=== PATIENT | female | born 1985 | race African-American/Black ===

== ENCOUNTER 2019-04-30 20:39 | Emergency (ER) | payer OTHER ==
--- NOTE | 2019-04-30 21:11 | PDOC ---
Rapid Medical Evaluation Chief Complaint: Cold Symptoms Time Seen by Provider: 04/30/19 21:05 Medical Evaluation: 04/30/19 21:06 I have performed a brief in-person evaluation of this patient. The patient presents with a chief complaint of: fevers 102+ x 3 days , seen and sent from , influenza and preg test at NEGATIVE = + nausea/ body aches , denies cough/ ear or throat pain Pertinent physical exam findings: pale/ tired, I have ordered the following: throat cx The patient will proceed to the ED for further evaluation. 04/30/19 21:09 Discharge Disposition - Diagnosis Fever - Referrals - Patient Instructions - Post Discharge Activity
[2019-04-30 21:19] VITALS: BP 108/63; PULSE 90; TEMP 100; BMI 35.1
[2019-04-30] MEDS ORDERED: ACETAMINOPHEN 500 MG TABLET (FP) PO ONE (21:50)
--- NOTE | 2019-04-30 21:59 | PDOC ---
History of Present Illness - General Chief Complaint: Cold Symptoms Stated Complaint: FEVER Time Seen by Provider: 04/30/19 21:05 - History of Present Illness Initial Comments: 04/30/19 21:57 33-year-old female without comorbidities presents for evaluation of fever chills and night sweats and body aches 5 days Past History - Past Medical History Allergies/Adverse Reactions: Allergies Allergy/AdvReac Type Severity Reaction Status Date / Time No Known Allergies Allergy Verified 04/30/19 21:09 COPD: No - Suicide/Smoking/Psychosocial Hx Smoking History: Never smoked Have you smoked in the past 12 months: No Information on smoking cessation initiated: No Hx Alcohol Use: No Drug/Substance Use Hx: No Review of Systems - Review of Systems Constitutional: Yes: Chills, Fever, Malaise, Night Sweats, Weakness *Physical Exam - Vital Signs Last Vital Signs Temp Pulse Resp BP Pulse Ox 100.0 F H 90 18 108/63 100 04/30/19 21:07 04/30/19 21:07 04/30/19 21:07 04/30/19 21:07 04/30/19 21:07 - Physical Exam Comments: 04/30/19 21:57 HEAD: NC/AT EYES: Conjuntiva clear Ears: Canals and TM's normal NOSE: No d/c THROAT: Moist mucous membrances, oral pharanx clear, uvula midline NECK: Supple without adenopathy CARDIAC: S1 S2 LUNGS: CTA Full and Equal breath sounds ABDOMEN: Soft NT ND MS: Full ROM in all joints without edema NEUROLOGIC: No gross sensory or motor deficits, NVID SKIN: Normal color and temperature no lesions or rashes Medical Decision Making - Medical Decision Making 04/30/19 21:57 Examination on impresses however symptoms have been lingering for the last 5 days as suspected tickborne illness have ordered a tickborne panel CBC and chemistry I will have her follow-up with her primary care physician. We have drawn preliminary blood here. *DC/Admit/Observation/Transfer Diagnosis at time of Disposition: Fever - Discharge Dispostion Disposition: HOME Condition at time of disposition: Stable Decision to Admit order: No - Referrals Referrals: Oh Pace MD [Staff Physician] - - Patient Instructions Additional Instructions: Tylenol and Motrin as directed for fever. Return to the emergency room for worsening symptoms. Follow-up with her primary care physician in one to 2 days for further evaluation and treatment options. We have drawn blood for lyme, Babesia, and Ehrlichia panel to evaluate for tickborne illnesses. - Post Discharge Activity
[2019-04-30 22:06] LABS: HCG,QUALITATIVE URINE Negative
[2019-04-30 22:07] LABS: HYALINE CASTS 1 /lpf (0-8); URINE APPEARANCE CLOUDY; URINE BACTERIA 1105.2 /hpf (NEGATIVE); URINE BILIRUBIN NEGATIVE (NEGATIVE); URINE COLOR YELLOW; URINE GLUCOSE (UA) NEGATIVE (NEGATIVE); URINE KETONE 2+ (NEGATIVE); URINE LEUK ESTERASE 3+ (NEGATIVE); URINE NITRITE NEGATIVE (NEGATIVE); URINE PROTEIN 2+ (NEGATIVE); URINE RBC 9 /hpf (0-4); URINE WBC 335 /hpf (0-5)
[2019-04-30] MEDS ORDERED: ACETAMINOPHEN 500 MG TABLET (FP) ONE (22:13)
[2019-04-30 22:39] LABS: BASO % 0.3 % (0-2.0); HEMATOCRIT 34.9 % (32.4-45.2); HEMOGLOBIN 11.5 GM/dL (10.7-15.3); LYMPH % 5.9 % (8-40); MCH 26.3 pg (25.7-33.7); MCHC 32.9 g/dl (32.0-36.0); MEAN PLT VOLUME 10.1 fl (7.5-11.1); MONO % 14.7 % (3.8-10.2); NEUT % 79.1 % (42.8-82.8); PLATELET COUNT 251 K/MM3 (134-434); RBC 4.36 M/mm3 (3.60-5.2); RDW 13.7 % (11.6-15.6); WHITE BLOOD COUNT 13.8 K/mm3 (4.0-10.0)
[2019-04-30 22:53] LABS: ALBUMIN 3.4 g/dl (3.4-5.0); BILIRUBIN,TOTAL 0.6 mg/dL (0.2-1); BLOOD UREA NITROGEN 8.3 mg/dL (7-18); CALCIUM 8.5 mg/dL (8.5-10.1); CREATININE 1.2 mg/dL (0.55-1.3); POTASSIUM 3.1 mmol/L (3.5-5.1); TOT PROT 7.4 g/dl (6.4-8.2)
== END 2019-04-30 22:15 | disposition home or self-care (01) ==
LOC: JERFT 20:39 → JER 20:39 → JERFT 22:15
DX: R50.9 Fever, unspecified (principal)
CPT/HCPCS: 36415; 80053; 81003; 84703; 85025; 86618; 86666; 86753; 87070; 87086; 87186; 87880; 99281-25

== ENCOUNTER 2019-05-01 07:36 | Inpatient (IN) | payer OTHER ==
--- NOTE | 2019-05-01 08:03 | PDOC ---
History of Present Illness - General Chief Complaint: Diarrhea Stated Complaint: CHEST PAIN/FEVER Time Seen by Provider: 05/01/19 08:03 History Source: Patient Exam Limitations: No Limitations - History of Present Illness Initial Comments: 05/01/19 08:23 33 year old female with no PMH presented to ED for chest pain since 0700 today. Pt reported her pain is intermittent, pressure-like, non-radiating, no alleviating or aggravating factors. Pt also complained of diarrhea, body aches, fever x4 days. Pt denied vomiting, blood in stool, recent travel outside the [place] , cough. Pt stated her fever was 101F today, and she last took Tylenol and Motrin at around 0400. Allergies: NKDA Family cardiac history: denied [place] in mother/father/siblings. Nicotine history: never smoked Past History - Past Medical History Allergies/Adverse Reactions: Allergies Allergy/AdvReac Type Severity Reaction Status Date / Time No Known Allergies Allergy Verified 05/01/19 07:46 COPD: No - Suicide/Smoking/Psychosocial Hx Smoking History: Never smoked Have you smoked in the past 12 months: No Information on smoking cessation initiated: No Hx Alcohol Use: No Drug/Substance Use Hx: No Review of Systems - Review of Systems Able to Perform ROS?: Yes Comments:: 05/01/19 08:22 General: admitted to fever, chills, generalized weakness, body aches. HEENT: denied sore throat, rhinorrhea, ear pain. Heart: admitted to chest pain. denied palpitations, syncope, diaphoresis. Respiratory: denied shortness of breath, cough, sputum production, hemoptysis. Abdomen: admitted to diarrhea. denied abdominal pain, nausea, vomiting, constipation, blood in stool. : denied dysuria, increased urinary frequency, hematuria, urinary incontinence , flank pain. Back: denied back pain. Musculoskeletal: denied joint pain, muscle pain, joint swelling. Neurological: denied headache, dizziness, numbness, tingling, weakness. Skin: denied rash, laceration, abrasion. *Physical Exam - Vital Signs Last Vital Signs Temp Pulse Resp BP Pulse Ox 99.3 F 18 L 110 H 126/67 100 05/01/19 07:43 05/01/19 07:43 05/01/19 07:43 05/01/19 07:43 05/01/19 07:43 - Physical Exam Comments: 05/01/19 08:23 Constitutional: Well-nourished, Well-developed, appearing stated age. HEENT: head is normocephalic, atraumatic. EOMI. PERRLA. Neck: supple. Full ROM. Heart: regular rhythm. no murmurs, rubs or gallops. Lungs: clear to auscultation bilaterally. no crackles, rhonchi or wheezing. no stridor. Abdomen: soft, flat. mild tenderness to palpation of epigastrium. decreased bowel sounds. urrutia negative. no rebound, guarding, masses. Back: negative CVA tenderness bilaterally. Extremities: peripheral pulses intact. no lower extremity edema. Neurological: CN 2-12 grossly intact. moves all four extremities. Psych: awake, alert, oriented x3. follows commands. answers questions appropriately. Heart Score/ECG Review - History History: Slightly suspicious - Electrocardiogram EKG: Non specific repolarization disturbance - Age Age: </= 45 - Risk Factors Based on the list above the patient has:: No risk factors known - Troponin Troponin: </= normal limit - Score Heart Score - Total: 1 ED Treatment Course - LABORATORY CBC & Chemistry Diagram: 05/01/19 13:55 05/01/19 13:55 Medical Decision Making - Medical Decision Making 33 year old female with no PMH presented to ED for chest pain since 0700 today. Pt was seen and evaluated in [facility] ED 04/30/19 for fever/diarrhea, no chest pain at the time. Examination significant for epigastric tenderness. Initial Vital Signs Temp Pulse Resp BP Pulse Ox 99.3 F 110 H 18 126/67 100 05/01/19 07:43 05/01/19 07:43 05/01/19 07:43 05/01/19 07:43 05/01/19 07:43 Afebrile. Tachycardia. No tachypnea. No hypotension. No hypoxia on room air. Labs ordered: CBC, CMP, TSH, troponin, Mag, stool culture Imaging ordered: CT abdomen and pelvis with IV contrast Medications ordered: pepcid, maalox, normal saline bolus 1000 cc, ASA 162 mg PO chew Urine testing from 04/30/19 was negative. Labs 04/30/19 were significant for leukocytosis (13.1) with mild hyponatremia ( 134) and hypokalemia (3.1); UA was positive for UTI, pt denied dysuria/ increased urinary frequency, no treatment given. EKG performed at 0823: rate 81, regular rhythm, normal axis, normal intervals, flipped T lateral/inferior. No prior to compare. Vital Signs Pulse Rate 100 H 05/01/19 08:38 Respiratory Rate 17 05/01/19 08:38 O2 Sat by Pulse Oximetry (%) 100 05/01/19 08:38 Tachycardia improving. 05/01/19 09:05 CXR report: Chest: Pain. A single AP view of the chest reveals clear lungs, normal mediastinum and sharp angles. The bones and soft tissues are intact. Impression: No acute chest pathology. Reported By: Dat Hurley MD 05/01/19 0858 05/01/19 09:08 CBC WBC 15.0 K/mm3 (4.0-10.0) H 05/01/19 08:18 RBC 4.24 M/mm3 (3.60-5.2) 05/01/19 08:18 Hgb 11.2 GM/dL (10.7-15.3) 05/01/19 08:18 Hct 33.7 % (32.4-45.2) 05/01/19 08:18 MCV 79.3 fl (80-96) L 05/01/19 08:18 MCH 26.4 pg (25.7-33.7) 05/01/19 08:18 MCHC 33.3 g/dl (32.0-36.0) 05/01/19 08:18 RDW 14.0 % (11.6-15.6) 05/01/19 08:18 Plt Count 245 K/MM3 (134-434) 05/01/19 08:18 MPV 10.3 fl (7.5-11.1) 05/01/19 08:18 Absolute Neuts (auto) 12.1 K/mm3 (1.5-8.0) H 05/01/19 08:18 Neutrophils % 80.4 % (42.8-82.8) 05/01/19 08:18 Lymphocytes % 4.8 % (8-40) L 05/01/19 08:18 Monocytes % 14.7 % (3.8-10.2) H 05/01/19 08:18 Eosinophils % 0.0 % (0-4.5) 05/01/19 08:18 Basophils % 0.1 % (0-2.0) 05/01/19 08:18 Nucleated RBC % 0 % (0-0) 05/01/19 08:18 Leukocytosis with left shift. No anemia. 05/01/19 09:33 CMP Sodium 136 mmol/L (136-145) 05/01/19 08:18 Potassium 3.5 mmol/L (3.5-5.1) 05/01/19 08:18 Chloride 101 mmol/L (98-107) 05/01/19 08:18 Carbon Dioxide 27 mmol/L (21-32) 05/01/19 08:18 Anion Gap 8 MMOL/L (8-16) 05/01/19 08:18 BUN 7.8 mg/dL (7-18) 05/01/19 08:18 Creatinine 1.2 mg/dL (0.55-1.3) 05/01/19 08:18 Est GFR (CKD-EPI)AfAm 68.28 05/01/19 08:18 Est GFR (CKD-EPI)NonAf 58.92 05/01/19 08:18 Random Glucose 114 mg/dL (74-106) H 05/01/19 08:18 Calcium 8.5 mg/dL (8.5-10.1) 05/01/19 08:18 Magnesium 2.2 mg/dL (1.8-2.4) 05/01/19 08:18 Total Bilirubin 0.6 mg/dL (0.2-1) 05/01/19 08:18 AST 10 U/L (15-37) L 05/01/19 08:18 ALT 15 U/L (13-61) 05/01/19 08:18 Alkaline Phosphatase 106 U/L (45-117) 05/01/19 08:18 Troponin I < 0.02 ng/ml (0.00-0.05) 05/01/19 08:18 Total Protein 7.1 g/dl (6.4-8.2) 05/01/19 08:18 Albumin 3.1 g/dl (3.4-5.0) L 05/01/19 08:18 TSH 1.45 uIU/ml (0.358-3.74) 06/20/19 08:18 No electrolyte abnormalities. No Tona. No transaminitis. TSH normal. Troponin undetectable. Lipase 05/01/19 11:00 CT abdomen/pelvis report: Clinical history: 33-year-old female with febrile diarrhea. Rule out diverticulitis or colitis. Comparison: None. Contiguous transaxial images were obtained from the diaphragmatic domes and pubic symphysis after the administration of IV contrast. Sagittal and coronal reconstructions were performed. Lung bases: Minimal atelectasis. Bone: Negative. Liver: There is a degree of a fatty liver. Gallbladder: Negative. Biliary tree: Negative. Spleen: Negative. Pancreas: Negative. Adrenals: Negative. Kidneys: Diffusely inhomogeneous enhancement consistent with bilateral pyelonephritis. This is bilateral but worse on the left. The left kidney is swollen and there is mild bilateral perirenal stranding.. No hydronephrosis or stones seen. Pelvis: T-shaped IUD is seen in place. Possible complex left ovarian cyst. Mild fluid in the cul-de -sac. Normal bladder appearance. Bowel: Negative. Normal appendix. Other: Small hiatal hernia. It is laxity and anterior bowing of the midline rectus fascia associated with an umbilical hernia with fat. Impression: Findings are consistent with extensive bilateral pyelonephritis, greater on the left. No evidence of obstruction or stone disease is seen. Fatty liver. T-shaped IUD. Possible complex left ovarian cyst. Mild fluid in the cul-de-sac. Other findings as above. Clinical correlation advised. Reported By: Dat Billy MD 05/01/19 1056 Medications ordered: Ceftriaxone 1g IV, Tylenol IV Labs ordered: blood culturesx2 Disposition: Admission for febrile bilateral pyelonephritis *DC/Admit/Observation/Transfer Diagnosis at time of Disposition: Pyelonephritis - Discharge Dispostion Condition at time of disposition: Stable Decision to Admit order: Yes - Referrals - Patient Instructions - Post Discharge Activity
[2019-05-01] MEDS ORDERED: FAMOTIDINE 20 MG/50 ML IVPB 20 MG/50 ML MG IVPB ONE ×2 (08:22→08:28)
[2019-05-01] MEDS ORDERED: SODIUM CHLORIDE 1,000 ML IV STA (08:22)
[2019-05-01] MEDS ORDERED: MAG HYDROX/AL HYDROX/SIMETH 30 ML UNIT-DOSE CUP PO ONE (08:22)
[2019-05-01] MEDS ORDERED: MAG HYDROX/AL HYDROX/SIMETH 30 ML UNIT-DOSE CUP ONE (08:28)
--- NOTE | 2019-05-01 08:39 | PDOC ---
Attending Attestation - Resident Resident Name: Anna Senior - ED Attending Attestation I have performed the following: I have examined & evaluated the patient, The case was reviewed & discussed with the resident, I agree w/resident's findings & plan, Exceptions are as noted - HPI HPI: 05/01/19 09:17 Ms Enrique is a 33 yo F no PMH presentin to the ER for chest pain since 0700 today. Pt has had fevers since 5 days (since Sunday) Tmax 103 Pt has also had diarrhea, 4-5 non bloody liquid stools per day No vomiting Decreased appetite She reports myalgias. No international travel No change in diet, no food from abroad No camping No arthropod bites No headaches No dysuria No abdominal pain No ill contacts - has been visiting her aunt in the long-term daily, went to a picnic in [place] Pt presents today because she got up and noted a temp of 101 and chest pressure , center of the chest, no radiation, 8/10 Pt is febrile despite Tylenol and Motrin Allergies: NKDA Family cardiac history: denied [place] in mother/father/siblings. Nicotine history: never smoked - Physicial Exam PE: 05/01/19 08:39 GENERAL: The patient is in no acute distress. ENT: Ears normal, nares patent, oropharynx clear without exudates. Moist mucous membranes. NECK: Normal range of motion, supple LUNGS: Breath sounds equal, clear to auscultation bilaterally. No wheezes, and no crackles. HEART:Regular rate and rhythm, normal S1 and S2 without murmur, rub or gallop. ABDOMEN: Soft, nontender, normoactive bowel sounds. EXTREMITIES: Normal range of motion, no edema. NEUROLOGICAL: Cranial nerves II through XII grossly intact. Normal speech. No focal neurological deficits. SKIN: Warm, Dry, normal turgor, no rashes or lesions noted. - Medical Decision Making 05/01/19 08:39 EKG - NSR rate of 81 bpm, axis nml, intervals nml, no st elevation or depression , t wave inversions v3-v6, III, aVF 05/01/19 09:26 Febrile illness Pt had UA yesterday which was ? positive Will do: Labs UA CT abd IVF Re Assess Consider thin and thick smears Culture sent 05/02/19 09:05 Laboratory Tests 05/01/19 05/01/19 08:18 08:18 WBC 15.0 H Hgb 11.2 Hct 33.7 Plt Count 245 BUN 7.8 Creatinine 1.2 05/02/19 09:05 CT demonstrates bilateral pyelonephritis Will treat with Ceftriaxone Urinalysis and Urine cultures sent yesterday Admit for pyelo as pt is unable to tolerate po at this time
[2019-05-01 08:43] LABS: BASO % 0.1 % (0-2.0); HEMATOCRIT 33.7 % (32.4-45.2); HEMOGLOBIN 11.2 GM/dL (10.7-15.3); LYMPH % 4.8 % (8-40); MCH 26.4 pg (25.7-33.7); MCHC 33.3 g/dl (32.0-36.0); MEAN CELL VOLUME 79.3 fl (80-96); MEAN PLT VOLUME 10.3 fl (7.5-11.1); MONO % 14.7 % (3.8-10.2); NEUT % 80.4 % (42.8-82.8); PLATELET COUNT 245 K/MM3 (134-434); RBC 4.24 M/mm3 (3.60-5.2)
[2019-05-01 09:31] LABS: ALBUMIN 3.1 g/dl (3.4-5.0); ALK PHOS 106 U/L (45-117); ANION GAP 8 MMOL/L (8-16); BILIRUBIN,TOTAL 0.6 mg/dL (0.2-1); BLOOD UREA NITROGEN 7.8 mg/dL (7-18); CALCIUM 8.5 mg/dL (8.5-10.1); CHLORIDE 101 mmol/L (98-107); CO2 27 mmol/L (21-32); CREATININE 1.2 mg/dL (0.55-1.3); GLUCOSE,RANDOM 114 mg/dL (74-106); MAGNESIUM 2.2 mg/dL (1.8-2.4); POTASSIUM 3.5 mmol/L (3.5-5.1); SGOT/AST 10 U/L (15-37); SGPT/ALT 15 U/L (13-61); SODIUM 136 mmol/L (136-145); TOT PROT 7.1 g/dl (6.4-8.2)
[2019-05-01] MEDS ORDERED: ASPIRIN 81 MG CHEWABLE TABLETS PO ONE (09:33)
[2019-05-01] MEDS ORDERED: ASPIRIN 81 MG CHEWABLE TABLETS ONE (09:49)
[2019-05-01 10:30] LABS: LIPASE 70 U/L (73-393)
[2019-05-01] MEDS ORDERED: CEFTRIAXONE 1 GM in DEXTROSE 5%-WATER - 100 ML IVPB ONE (11:00)
[2019-05-01] MEDS ORDERED: ACETAMINOPHEN 1000 MG/100 ML VIAL (NON FORMULARY) IVPB ONE (11:01)
[2019-05-01] MEDS ORDERED: ACETAMINOPHEN INJECTION 100 ML IVPB ONE (11:17)
--- NOTE | 2019-05-01 11:58 | HP ---
Admitting History and Physical - Primary Care Physician PCP: none - Admission History of Present Illness: 05/01/19 08:23 33 year old female with no PMH presented to ED for chest pain since 0700 today. Pt reported her pain is intermittent, pressure-like, non-radiating, no alleviating or aggravating factors. Pt also complained of diarrhea, body aches, fever x5 days. Pt denied vomiting, blood in stool, recent travel outside the [place] , cough. Pt stated her fever was 101F today, and she last took Tylenol and Motrin at around 0400. SHe was seen in urgent care yesterday with c/o fever. Urine sent (negative), no urine studies sent, Tickborne blood panels sent, negative influenza panel. She proceeded to ED today with worsening symptoms Allergies: NKDA Family cardiac history: denied [place] in mother/father/siblings. Nicotine history: never smoked History Source: Patient Limitations to Obtaining History: No Limitations - Past Surgical History Past Surgical History: Yes: - Smoking History Smoking history: Never smoked Have you smoked in the past 12 months: No - Alcohol/Substance Use Hx Alcohol Use: No - Social History Usual Living Arrangement: Yes: With Significant Other, With Child History of Recent Travel: No Home Medications - Allergies Allergies/Adverse Reactions: Allergies Allergy/AdvReac Type Severity Reaction Status Date / Time No Known Allergies Allergy Verified 05/01/19 07:46 - Home Medications Home Medications (free text): none Family Disease History - Family Disease History Family History: Denies Review of Systems - Review of Systems Constitutional: reports: Chills, Fever, Malaise, Night Sweats, Weakness Eyes: reports: No Symptoms HENT: reports: No Symptoms Neck: reports: No Symptoms Cardiovascular: reports: Chest Pain (substernal radiating to right arm) Respiratory: reports: No Symptoms Gastrointestinal: reports: Diarrhea, Vomiting Genitourinary: reports: No Symptoms Breasts: reports: No Symptoms Reported Musculoskeletal: reports: No Symptoms Integumentary: reports: No Symptoms Neurological: reports: No Symptoms Endocrine: reports: No Symptoms Hematology/Lymphatic: reports: No Symptoms Psychiatric: reports: No Symptoms Pain Intensity: 9 (chest pain, but resolved) Physical Examination Vital Signs: Vital Signs Temperature 99.3 F 05/01/19 07:43 Pulse Rate 100 H 05/01/19 08:38 Respiratory Rate 17 05/01/19 08:38 Blood Pressure 126/67 05/01/19 07:43 O2 Sat by Pulse Oximetry (%) 100 05/01/19 08:38 Constitutional: Yes: Well Nourished, No Distress, Calm Eyes: Yes: WNL, Conjunctiva Clear, EOM Intact HENT: Yes: WNL, Atraumatic, Normocephalic Neck: Yes: WNL, Supple, Trachea Midline Cardiovascular: Yes: WNL, Regular Rate and Rhythm, Tachycardia Respiratory: Yes: WNL, Regular, CTA Bilaterally Gastrointestinal: Yes: WNL, Normal Bowel Sounds, Soft ...Rectal Exam: Yes: Deferred Renal/: Yes: WNL Breast(s): Yes: WNL Musculoskeletal: Yes: WNL Extremities: Yes: WNL Edema: No Integumentary: Yes: WNL Neurological: Yes: WNL, Alert, Oriented ...Motor Strength: WNL Psychiatric: Yes: WNL, Alert, Oriented Labs: CBC, BMP 05/01/19 08:18 05/01/19 08:18 Imaging - Results Cat Scan: Report Reviewed (CT abdomen/pelvis report: Contiguous transaxial images were obtained from the diaphragmatic domes and pubic symphysis after the administration of IV contrast. Sagittal and coronal reconstructions were performed. Lung bases: Minimal atelectasis. Bone: Negative. Liver: There is a degree of a fatty liver. Gallbladder: Negative. Biliary tree: Negative. Spleen: Negative. Pancreas: Negative. Adrenals: Negative. Kidneys: Diffusely inhomogeneous enhancement consistent with bilateral pyelonephritis. This is bilateral but worse on the left. The left kidney is swollen and there is mild bilateral perirenal stranding.. No hydronephrosis or stones seen. Pelvis: T- shaped IUD is seen in place. Possible complex left ovarian cyst. Mild fluid in the cul-de -sac. Normal bladder appearance. Bowel: Negative. Normal appendix. Other: Small hiatal hernia. It is laxity and anterior bowing of the midline rectus fascia associated with an umbilical hernia with fat. Impression: Findings are consistent with extensive bilateral pyelonephritis, greater on the left. No evidence of obstruction or stone disease is seen. Fatty liver. T- shaped IUD. Possible complex left ovarian cyst. Mild fluid in the cul-de-sac. Other findings as above. Clinical correlation advised.) Problem List - Problems (1) Chest pain Assessment/Plan: EKG without evidence of ischemia, troponins negative ASA dose given in ED will continue to monitor for return of chest pain Code(s): R07.9 - CHEST PAIN, UNSPECIFIED (2) Pyelonephritis Assessment/Plan: CT Findings are consistent with extensive bilateral pyelonephritis, greater on the left. dose of ceftriaxone given in ED Will continue to dose daily 1 g for 3 after no longer febrile and then may convert to oral antibiotics IVF NS @ 75 while remains rebrile and vomiting Code(s): N12 - TUBULO-INTERSTITIAL NEPHRITIS, NOT SPCF ACUTE OR CHRONIC (3) Fever Assessment/Plan: tylenol PRN continue IVF Code(s): R50.9 - FEVER, UNSPECIFIED (4) Vomiting Assessment/Plan: maintain IVF zofran PRN Code(s): R11.10 - VOMITING, UNSPECIFIED (5) Prophylactic measure Assessment/Plan: FEN regualr diet as tolerated IVF while febrile montitor electrolytes DVT proph ambulation ad stephen Dispo maintain as inpatient full code discharge planning Code(s): Z29.9 - ENCOUNTER FOR PROPHYLACTIC MEASURES, UNSPECIFIED Assessment/Plan Urine testing from 04/30/19 was negative. Labs 04/30/19 were significant for leukocytosis (13.1) with mild hyponatremia ( 134) and hypokalemia (3.1); UA was positive for UTI, pt denied dysuria/ increased urinary frequency, no treatment given. EKG performed at 0823: rate 81, regular rhythm, normal axis, normal intervals, flipped T lateral/inferior. No prior to compare. Vital Signs Visit type - Emergency Visit Emergency Visit: Yes ED Registration Date: 05/01/19 Care time: The patient presented to the Emergency Department on the above date and was hospitalized for further evaluation of their emergent condition. - New Patient This patient is new to me today: Yes Date on this admission: 05/01/19 - Critical Care Critical Care patient: No
--- NOTE | 2019-05-01 12:29 | EKG ---
Test Reason : Blood Pressure : / mmHG Vent. Rate : 081 BPM Atrial Rate : 081 BPM P-R Int : 172 ms QRS Dur : 088 ms QT Int : 344 ms P-R-T Axes : 062 069 021 degrees QTc Int : 399 ms NORMAL SINUS RHYTHM POSSIBLE LEFT ATRIAL ENLARGEMENT NONSPECIFIC T WAVE ABNORMALITY ABNORMAL ECG NO PREVIOUS ECGS AVAILABLE Confirmed by JIL BARR MD ([id number]) on 05/01/2019 12:29:31 PM Referred By: Confirmed By:JIL BARR MD
[2019-05-01] MEDS ORDERED: CEFTRIAXONE 1 GM/50 ML BAG ONE (13:08)
[2019-05-01 15:02] VITALS: BMI 35.6
[2019-05-01 15:03] LABS: BASO % 0.2 % (0-2.0); HEMATOCRIT 31.7 % (32.4-45.2); HEMOGLOBIN 10.4 GM/dL (10.7-15.3); LYMPH % 6.1 % (8-40); MCHC 32.9 g/dl (32.0-36.0); MEAN PLT VOLUME 10.3 fl (7.5-11.1); MONO % 13.2 % (3.8-10.2); NEUT % 80.5 % (42.8-82.8); PLATELET COUNT 225 K/MM3 (134-434); RBC 4.01 M/mm3 (3.60-5.2); RDW 13.8 % (11.6-15.6); WHITE BLOOD COUNT 12.7 K/mm3 (4.0-10.0)
[2019-05-01] MEDS ORDERED: SODIUM CHLORIDE 1,000 ML IV SCH (15:15)
[2019-05-01] MEDS ORDERED: ONDANSETRON 4 MG/2 ML VIAL IVPUSH PRN (15:30)
[2019-05-01 16:00] LABS: ALBUMIN 2.8 g/dl (3.4-5.0); ALK PHOS 102 U/L (45-117); ANION GAP 9 MMOL/L (8-16); BILIRUBIN,TOTAL 0.5 mg/dL (0.2-1); BLOOD UREA NITROGEN 6.6 mg/dL (7-18); CALCIUM 7.9 mg/dL (8.5-10.1); CHLORIDE 104 mmol/L (98-107); CO2 24 mmol/L (21-32); CREATININE 1.2 mg/dL (0.55-1.3); GLUCOSE,RANDOM 116 mg/dL (74-106); MAGNESIUM 2.4 mg/dL (1.8-2.4); POTASSIUM 3.3 mmol/L (3.5-5.1); SGOT/AST 11 U/L (15-37); SGPT/ALT 16 U/L (13-61); SODIUM 136 mmol/L (136-145); TOT PROT 6.5 g/dl (6.4-8.2)
[2019-05-01] MEDS: ACETAMINOPHEN 500 MG TABLET (FP) PO PRN ×2 (17:14→22:20)
[2019-05-01] MEDS ORDERED: POTASSIUM CHLORIDE TABS 20 MEQ TABLET.ER (FP) PO ONE (17:15)
[2019-05-01] MEDS: SODIUM CHLORIDE 1,000 ML IV SCH (17:24)
[2019-05-02] MEDS: SODIUM CHLORIDE 1,000 ML IV SCH ×3 (01:53→18:50)
[2019-05-02] MEDS: ACETAMINOPHEN 500 MG TABLET (FP) PO PRN ×2 (05:48→11:43)
--- NOTE | 2019-05-02 08:04 | PN ---
Progress Note, Physician Chief Complaint: fever, diarrhea History of Present Illness: 33 year old female with no PMH presented to ED for chest pain since 0700 today. Pt reported her pain is intermittent, pressure-like, non-radiating, no alleviating or aggravating factors. Pt also complained of diarrhea, body aches, fever x5 days. Pt denied vomiting, blood in stool, recent travel outside the [place] , cough. Pt stated her fever was 101F today, and she last took Tylenol and Motrin at around 0400. SHe was seen in urgent care yesterday with c/o fever. Urine sent (negative), no urine studies sent, [facility] blood panels sent, negative influenza panel. She proceeded to ED with worsening symptoms - Current Medication List Current Medications: Active Medications Acetaminophen (Tylenol -) 1,000 mg PO Q6H PRN PRN Reason: FEVER Last Admin: 05/02/19 05:48 Dose: 1,000 mg Ceftriaxone Sodium 1 gm/ (Dextrose) 50 mls @ 100 mls/hr IVPB DAILY RENNY; Protocol Sodium Chloride (Normal Saline -) 1,000 mls @ 100 mls/hr IV ASDIR RENNY Last Admin: 05/02/19 01:53 Dose: 100 mls/hr Ondansetron HCl (Zofran Injection) 4 mg IVPUSH Q8H PRN PRN Reason: NAUSEA Pantoprazole Sodium (Protonix -) 40 mg PO DAILY RENNY - Objective Vital Signs: Vital Signs Temperature 101.8 F H 05/02/19 06:00 Pulse Rate 81 05/02/19 06:00 Respiratory Rate 20 05/02/19 06:00 Blood Pressure 115/47 L 05/02/19 06:00 O2 Sat by Pulse Oximetry (%) 97 05/01/19 21:00 Constitutional: Yes: Well Nourished, No Distress, Calm Eyes: Yes: WNL, Conjunctiva Clear, EOM Intact HENT: Yes: WNL, Atraumatic, Normocephalic Neck: Yes: WNL, Supple, Trachea Midline Cardiovascular: Yes: WNL, Regular Rate and Rhythm Respiratory: Yes: WNL, Regular, CTA Bilaterally Gastrointestinal: Yes: WNL, Normal Bowel Sounds, Soft ...Rectal Exam: Yes: Deferred Genitourinary: Yes: WNL Musculoskeletal: Yes: WNL Extremities: Yes: WNL Edema: No Peripheral Pulses WNL: Yes Integumentary: Yes: WNL Neurological: Yes: WNL, Alert, Oriented ...Motor Strength: WNL Psychiatric: Yes: WNL, Alert, Oriented Labs: CBC, BMP 05/01/19 13:55 05/01/19 13:55 - ....Imaging Cat Scan: Report Reviewed Problem List - Problems (1) Chest pain Assessment/Plan: EKG without evidence of ischemia, troponins negative ASA dose given in ED will continue to monitor for return of chest pain continue PPI, most likely GI in nature Code(s): R07.9 - CHEST PAIN, UNSPECIFIED (2) Pyelonephritis Assessment/Plan: CT Findings are consistent with extensive bilateral pyelonephritis, greater on the left. Will continue to dose daily 1 g for 3 after no longer febrile and then may convert to oral antibiotics IVF NS @ 100 while remains rebrile and vomiting Code(s): N12 - TUBULO-INTERSTITIAL NEPHRITIS, NOT SPCF ACUTE OR CHRONIC (3) Fever Assessment/Plan: continue to be febrile tylenol PRN continue IVF @ 100cc/hr Code(s): R50.9 - FEVER, UNSPECIFIED (4) Vomiting Assessment/Plan: resolved maintain IVF zofran PRN Code(s): R11.10 - VOMITING, UNSPECIFIED (5) Prophylactic measure Assessment/Plan: FEN regualr diet as tolerated IVF while febrile montitor electrolytes DVT proph ambulation ad stephen Dispo maintain as inpatient full code discharge planning Code(s): Z29.9 - ENCOUNTER FOR PROPHYLACTIC MEASURES, UNSPECIFIED Visit type - Emergency Visit Emergency Visit: Yes ED Registration Date: 05/01/19 Care time: The patient presented to the Emergency Department on the above date and was hospitalized for further evaluation of their emergent condition. - New Patient This patient is new to me today: No - Critical Care Critical Care patient: No - Discharge Referral Referred to [facility] Med P.C.: No
[2019-05-02 09:00] LABS: ALBUMIN 2.6 g/dl (3.4-5.0); BILIRUBIN,TOTAL 0.7 mg/dL (0.2-1); BLOOD UREA NITROGEN 7.5 mg/dL (7-18); CALCIUM 7.7 mg/dL (8.5-10.1); CREATININE 1.1 mg/dL (0.55-1.3); MAGNESIUM 2.3 mg/dL (1.8-2.4); POTASSIUM 3.3 mmol/L (3.5-5.1); TOT PROT 6.3 g/dl (6.4-8.2)
[2019-05-02] MEDS ORDERED: cefTRIAXone SODIUM 1 GM VIAL ONE (09:12)
[2019-05-02] MEDS ORDERED: DEXTROSE 5%-WATER - 50 ML IVPB ONE (09:12)
[2019-05-02] MEDS: CEFTRIAXONE 1 GM in DEXTROSE 5%-WATER - 50 ML IVPB SCH (09:15)
[2019-05-02] MEDS: PANTOPRAZOLE 40 MG TABLET (FP) PO SCH ×2 (09:15)
[2019-05-02] MEDS ORDERED: POTASSIUM CHLORIDE TABS 20 MEQ TABLET.ER (FP) PO ONE ×2 (13:51→17:33)
[2019-05-02] MEDS ORDERED: IBUPROFEN 400 MG TABLET (FP) PO PRN (16:07)
[2019-05-02 16:08] LABS: BASO % 0.3 % (0-2.0); EOS % 0.2 % (0-4.5); HEMATOCRIT 29.7 % (32.4-45.2); HEMOGLOBIN 9.7 GM/dL (10.7-15.3); LYMPH % 9.4 % (8-40); MCH 26.1 pg (25.7-33.7); MCHC 32.8 g/dl (32.0-36.0); MEAN CELL VOLUME 79.5 fl (80-96); MEAN PLT VOLUME 10.3 fl (7.5-11.1); NEUT % 72.1 % (42.8-82.8); PLATELET COUNT 230 K/MM3 (134-434); RBC 3.74 M/mm3 (3.60-5.2); RDW 13.8 % (11.6-15.6); WHITE BLOOD COUNT 13.8 K/mm3 (4.0-10.0)
[2019-05-02 16:28] LABS: BLOOD UREA NITROGEN 6.9 mg/dL (7-18); CALCIUM 7.6 mg/dL (8.5-10.1); POTASSIUM 3.4 mmol/L (3.5-5.1)
[2019-05-02] MEDS ORDERED: PT OWN MED DRAWER 7, Y5N ONE (18:10)
[2019-05-03] MEDS: ACETAMINOPHEN 500 MG TABLET (FP) PO PRN (01:22)
[2019-05-03 08:09] LABS: BASO % 0.2 % (0-2.0); EOS % 0.3 % (0-4.5); HEMATOCRIT 33.7 % (32.4-45.2); HEMOGLOBIN 11.4 GM/dL (10.7-15.3); LYMPH % 16.2 % (8-40); MCH 26.9 pg (25.7-33.7); MCHC 33.7 g/dl (32.0-36.0); MEAN CELL VOLUME 79.8 fl (80-96); MEAN PLT VOLUME 10.4 fl (7.5-11.1); MONO % 17.1 % (3.8-10.2); NEUT % 66.2 % (42.8-82.8); PLATELET COUNT 262 K/MM3 (134-434); RBC 4.23 M/mm3 (3.60-5.2); RDW 14.1 % (11.6-15.6); WHITE BLOOD COUNT 14.2 K/mm3 (4.0-10.0)
[2019-05-03 08:20] LABS: ALBUMIN 2.6 g/dl (3.4-5.0); BILIRUBIN,TOTAL 0.3 mg/dL (0.2-1); BLOOD UREA NITROGEN 6.8 mg/dL (7-18); CALCIUM 8.5 mg/dL (8.5-10.1); MAGNESIUM 2.5 mg/dL (1.8-2.4); TOT PROT 6.6 g/dl (6.4-8.2)
[2019-05-03] MEDS ORDERED: DEXTROSE 5%-WATER - 50 ML IVPB ONE (09:18)
[2019-05-03] MEDS ORDERED: cefTRIAXone SODIUM 1 GM VIAL ONE (09:18)
[2019-05-03] MEDS: CEFTRIAXONE 1 GM in DEXTROSE 5%-WATER - 50 ML IVPB SCH (09:44)
[2019-05-03] MEDS: PANTOPRAZOLE 40 MG TABLET (FP) PO SCH (09:44)
[2019-05-03] MEDS: SODIUM CHLORIDE 1,000 ML IV SCH (09:46)
--- NOTE | 2019-05-03 10:07 | PN ---
Physical Exam: SUBJECTIVE: Patient seen and examined she is better and has less pain but had fever this am and now she is afibrile no distres she has good apatite OBJECTIVE: Vital Signs Period Temp Pulse Resp BP Sys/Viera Pulse Ox Last 24 Hr 97.9 F-102.5 F 58-80 18-20 102-118/53-77 97 GENERAL: The patient is awake, alert, and fully oriented, in no acute distress. HEAD: Normal with no signs of trauma. EYES: PERRL, extraocular movements intact, sclera anicteric, conjunctiva clear. No ptosis. ENT: Ears normal, nares patent, oropharynx clear without exudates, moist mucous membranes. NECK: Trachea midline, full range of motion, supple. LUNGS: Breath sounds equal, clear to auscultation bilaterally, no wheezes, no crackles, no accessory muscle use. HEART: Regular rate and rhythm, S1, S2 without murmur, rub or gallop. ABDOMEN: Soft, nontender, nondistended, normoactive bowel sounds, no guarding, no rebound, no hepatosplenomegaly, no masses. EXTREMITIES: 2+ pulses, warm, well-perfused, no edema. NEUROLOGICAL: Cranial nerves II through XII grossly intact. Normal speech, gait not observed. PSYCH: Normal mood, normal affect. SKIN: Warm, dry, normal turgor, no rashes or lesions noted Laboratory Results - last 24 hr 05/02/19 05/02/19 05/03/19 15:00 15:00 06:30 WBC 13.8 H 14.2 H RBC 3.74 4.23 Hgb 9.7 L 11.4 Hct 29.7 L 33.7 MCV 79.5 L 79.8 L MCH 26.1 26.9 MCHC 32.8 33.7 RDW 13.8 14.1 Plt Count 230 262 MPV 10.3 10.4 Absolute Neuts (auto) 10.0 H 9.4 H Neutrophils % 72.1 66.2 Lymphocytes % 9.4 D 16.2 D Monocytes % 18.0 H 17.1 H Eosinophils % 0.2 D 0.3 Basophils % 0.3 0.2 Nucleated RBC % 0 0 Sodium 135 L Potassium 3.4 L Chloride 106 Carbon Dioxide 24 Anion Gap 6 L BUN 6.9 L Creatinine 1.0 Est GFR (CKD-EPI)AfAm 85.12 Est GFR (CKD-EPI)NonAf 73.45 Random Glucose 119 H Calcium 7.6 L Magnesium Total Bilirubin AST ALT Alkaline Phosphatase Total Protein Albumin 05/03/19 06:30 WBC RBC Hgb Hct MCV MCH MCHC RDW Plt Count MPV Absolute Neuts (auto) Neutrophils % Lymphocytes % Monocytes % Eosinophils % Basophils % Nucleated RBC % Sodium 140 Potassium 4.0 Chloride 108 H Carbon Dioxide 23 Anion Gap 8 BUN 6.8 L Creatinine 1.0 Est GFR (CKD-EPI)AfAm 85.12 Est GFR (CKD-EPI)NonAf 73.45 Random Glucose 80 Calcium 8.5 Magnesium 2.5 H Total Bilirubin 0.3 AST 12 L ALT 20 Alkaline Phosphatase 114 Total Protein 6.6 Albumin 2.6 L Active Medications Generic Name Dose Route Start Last Admin Trade Name Freq PRN Reason Stop Dose Admin Acetaminophen 1,000 mg 05/01/19 13:31 05/03/19 01:22 Tylenol - PO 1,000 mg Q6H PRN Administration FEVER Ceftriaxone Sodium 1 gm/ 50 mls @ 100 mls/hr 05/02/19 10:00 05/03/19 09:44 Dextrose IVPB 100 mls/hr DAILY RENNY Administration Protocol Sodium Chloride 1,000 mls @ 100 mls/hr 05/01/19 17:15 05/03/19 09:46 Normal Saline - IV 100 mls/hr ASDIR RENNY Administration Ibuprofen 400 mg 05/02/19 16:07 05/02/19 16:21 Motrin - PO 400 mg Q6H PRN Administration FEVER Ondansetron HCl 4 mg 05/01/19 15:30 Zofran Injection IVPUSH Q8H PRN NAUSEA Pantoprazole Sodium 40 mg 05/02/19 07:45 05/03/19 09:44 Protonix - PO 40 mg DAILY RENNY Administration ASSESSMENT/PLAN: 33 year old female with no PMH presented to ED for chest pain .She has pylo on ct scan she is on abx and doing better wbc is still up but clinicaly she is responding well. continue abx and fluids oob and ambulation pain meds as needed Acetaminophen (Tylenol -) 1,000 mg PO Q6H PRN PRN Reason: FEVER Last Admin: 05/03/19 01:22 Dose: 1,000 mg Ceftriaxone Sodium 1 gm/ (Dextrose) 50 mls @ 100 mls/hr IVPB DAILY RENNY; Protocol Last Admin: 05/03/19 09:44 Dose: 100 mls/hr Sodium Chloride (Normal Saline -) 1,000 mls @ 100 mls/hr IV ASDIR RENNY Last Admin: 05/03/19 09:46 Dose: 100 mls/hr Ibuprofen (Motrin -) 400 mg PO Q6H PRN PRN Reason: FEVER Last Admin: 05/02/19 16:21 Dose: 400 mg Ondansetron HCl (Zofran Injection) 4 mg IVPUSH Q8H PRN PRN Reason: NAUSEA Pantoprazole Sodium (Protonix -) 40 mg PO DAILY RENNY Last Admin: 05/03/19 09:44 Dose: 40 mg Visit type - Emergency Visit Emergency Visit: Yes ED Registration Date: 05/01/19 Care time: The patient presented to the Emergency Department on the above date and was hospitalized for further evaluation of their emergent condition. - New Patient This patient is new to me today: Yes Date on this admission: 05/03/19 - Critical Care Critical Care patient: No - Discharge Referral Referred to [facility] Med P.C.: No
[2019-05-04 07:41] LABS: BASO % 0.5 % (0-2.0); EOS % 0.8 % (0-4.5); HEMATOCRIT 29.3 % (32.4-45.2); HEMOGLOBIN 9.9 GM/dL (10.7-15.3); LYMPH % 25.3 % (8-40); MCH 26.7 pg (25.7-33.7); MCHC 33.9 g/dl (32.0-36.0); MEAN CELL VOLUME 78.9 fl (80-96); MEAN PLT VOLUME 9.5 fl (7.5-11.1); MONO % 15.8 % (3.8-10.2); NEUT % 57.6 % (42.8-82.8); PLATELET COUNT 293 K/MM3 (134-434); RBC 3.71 M/mm3 (3.60-5.2); RDW 13.8 % (11.6-15.6); WHITE BLOOD COUNT 9.3 K/mm3 (4.0-10.0)
[2019-05-04 08:34] LABS: ALBUMIN 2.3 g/dl (3.4-5.0); BILIRUBIN,TOTAL 0.2 mg/dL (0.2-1); BLOOD UREA NITROGEN 5.8 mg/dL (7-18); CREATININE 0.9 mg/dL (0.55-1.3); MAGNESIUM 2.4 mg/dL (1.8-2.4); POTASSIUM 3.7 mmol/L (3.5-5.1); TOT PROT 5.9 g/dl (6.4-8.2)
[2019-05-04] MEDS ORDERED: cefTRIAXone SODIUM 1 GM VIAL ONE (09:05)
[2019-05-04] MEDS ORDERED: DEXTROSE 5%-WATER - 50 ML IVPB ONE (09:05)
[2019-05-04] MEDS: PANTOPRAZOLE 40 MG TABLET (FP) PO SCH (09:15)
[2019-05-04] MEDS: CEFTRIAXONE 1 GM in DEXTROSE 5%-WATER - 50 ML IVPB SCH (09:15)
[2019-05-04] MEDS: SODIUM CHLORIDE 1,000 ML IV SCH (09:15)
--- NOTE | 2019-05-04 12:20 | DS ---
Physical Examination Vital Signs: Vital Signs Temperature 98.9 F 05/04/19 10:00 Pulse Rate 71 05/04/19 10:00 Respiratory Rate 16 05/04/19 10:00 Blood Pressure 118/63 05/04/19 10:00 O2 Sat by Pulse Oximetry (%) 100 05/04/19 09:00 Constitutional: Yes: Well Nourished, No Distress, Calm Eyes: Yes: WNL, Conjunctiva Clear, EOM Intact HENT: Yes: WNL, Atraumatic, Normocephalic Neck: Yes: WNL, Supple, Trachea Midline Cardiovascular: Yes: WNL, Regular Rate and Rhythm, S1, S2 Respiratory: Yes: WNL, Regular, CTA Bilaterally Gastrointestinal: Yes: WNL, Normal Bowel Sounds, Soft ...Rectal Exam: Yes: WNL, Deferred Renal/: Yes: WNL Musculoskeletal: Yes: WNL Extremities: Yes: WNL Edema: No Peripheral Pulses WNL: Yes Integumentary: Yes: WNL Neurological: Yes: Alert, Oriented ...Motor Strength: WNL Psychiatric: Yes: WNL, Alert, Oriented Labs: CBC, BMP 05/04/19 07:04 05/04/19 07:04 Discharge Summary Reason For Visit: CHEST PAIN,PYELONEPHRITIS Current Active Problems Chest pain (Acute) Prophylactic measure (Acute) Pyelonephritis (Acute) Vomiting (Acute) Hospital Course: The patient was admitted for chest pain and the work up was negative. A CT was completed and an infection was found in your kidneys known as Pyelonephritis. The patient was treated with an Antibiotic (Ceftriaxone 1gm) for 3 days. And will be sent home on Cipro 500mg PO BID for 4 days. Admitted for Nausea Vomiting both of which were treating with Zofran and were resolved. Please follow up with your PCP in 1 week. Condition: Good - Instructions Diet, Activity, Other Instructions: Resume regular diet as tolerated Referrals: Noel Harrison MD [Staff Physician] - 1 Week Disposition: HOME - Home Medications Comprehensive Discharge Medication List: Cipro 500mg PO BID for 4 days -First dose tomorrow This patient is new to me today: Yes Date on this admission: 05/04/19 Emergency Visit: Yes ED Registration Date: 05/01/19 Care time: The patient presented to the Emergency Department on the above date and was hospitalized for further evaluation of their emergent condition. Critical Care patient: No - Discharge Referral Referred to [facility] Med P.C.: No
[2019-05-04 14:30] VITALS: BP 112/67; PULSE 80; TEMP 97.9
== END 2019-05-04 15:45 | disposition home or self-care (01) | DRG 463 ==
LOC: JER 07:36 → JERBED 11:14 → J7W 13:14
PROVIDERS: ATTEND Nurse Practitioner Acute Care
DX: N12 Tubulo-interstitial nephritis, not specified as acute or chronic (principal); N39.0 Urinary tract infection, site not specified; R50.9 Fever, unspecified; R07.9 Chest pain, unspecified; E87.6 Hypokalemia; E87.1 Hypo-osmolality and hyponatremia; R11.10 Vomiting, unspecified; D72.829 Elevated white blood cell count, unspecified
CPT/HCPCS: 36415; 71045-TC-FY; 74177-TC; 80048; 80053; 81003; 83690; 83735; 84443; 84484; 84703; 85025; 86618; 86666; 86753; 87040; 87070; 87086; 87186; 87880; 93005; 93010; 99281-25; J0131; J7030